=== PATIENT | female | born 1950 | race Caucasian/White ===

== ENCOUNTER 2018-12-27 20:50 | Emergency (ER) | payer OTHER ==
[2018-12-27 22:09] LABS: Absolute Lymphocytes (CBC) 1.1 K/uL (0.7-4.9); Absolute Monocytes 0.7 K/uL (0.1-1.3); Absolute Neutrophil 9.9 K/uL (1.8-8.0); Basophils % 0.5 % (0-1.3); Eosinophils % 1.1 % (0-4.4); Hematocrit 41.8 % (36.0-45.0); Lymphocytes % 9.5 % (15.3-44.8); MPV 7.6 fL (7.6-11.3); Monocytes % 5.6 % (3.3-12.3); RBC Red Blood Cell Count 4.82 M/uL (3.86-4.86)
[2018-12-27 22:09] LABS: Urine Blood 2+ (NEG); Urine Glucose NEGATIVE (NEG); Urine Protein TRACE (NEG); Urine Specific Gravity 1.025 (1.005-1.030)
[2018-12-27 22:18] LABS: Urine Bacteria <20 /HPF (<20); Urine Culture Reflex Order NOT NEEDED; Urine Mucus 2+ /HPF (NONE SEEN); Urine RBC 20-50 /HPF (NONE SEEN)
[2018-12-27 22:27] LABS: Albumin 3.6 g/dL (3.4-5.0); Bilirubin Direct 0.1 mg/dL (0-0.2); Bilirubin Total 0.4 mg/dL (0.2-1.0); Protein, Total 6.9 g/dL (6.4-8.2)
[2018-12-28] MEDS ORDERED: NA CHLORIDE 0.9% 1,000 ML ONE (00:03)
--- NOTE | 2018-12-28 00:07 | ER ---
Nurse's Notes [facility] Name: Jacquie Mota Age: 68 yrs Sex: Female : 1950 Arrival Date: 12/27/2018 Time: 20:56 Bed 5 Private MD: Diagnosis: Calculus of kidney and ureter-left Presentation: 12/27 21:14 Presenting complaint: Patient states: Patient states "I'm feeling a tremendous amount lp1 better now"; States minor pain now to left flank radiating to left groin; Hx of kidney stones. Transition of care: patient was not received from another setting of care. Onset of symptoms was December 27, 2018 at 19:15. Risk Assessment: Do you want to hurt yourself or someone else? Patient reports no desire to harm self or others. Initial Sepsis Screen: Does the patient meet any 2 criteria? No. Patient's initial sepsis screen is negative. Does the patient have a suspected source of infection? No. Patient's initial sepsis screen is negative. Care prior to arrival: None. 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 - Social history:: Smoking status: Patient/guardian denies using tobacco. - Ebola Screening: : No symptoms or risks identified at this time. Screenin:51 Abuse screen: Denies threats or abuse. Denies injuries from another. Nutritional ak1 screening: No deficits noted. Tuberculosis screening: No symptoms or risk factors identified. Fall Risk None identified. Assessment: 21:51 General: Appears in no apparent distress. Behavior is calm, cooperative. Pain: ak1 Complains of pain in suprapubic area and left lower quadrant. Neuro: No deficits noted. Cardiovascular: No deficits noted. Respiratory: No deficits noted. GI: Bowel sounds present X 4 quads. Abd is soft and non tender X 4 quads. Reports lower abdominal pain. : Reports urinary frequency, left lower abd pain with lower back pain X2 weeks. pt stated lower back pain has resolved. EENT: No signs and/or symptoms were reported regarding the EENT system. Derm: No signs and/or symptoms reported regarding the dermatologic system. Musculoskeletal: No signs and/or symptoms reported regarding the musculoskeletal system. 23:05 Reassessment: Patient appears in no apparent distress at this time. No changes from ak1 previously documented assessment. Patient and/or family updated on plan of care and expected duration. Pain level reassessed. Patient is alert, oriented x 3, equal unlabored respirations, skin warm/dry/pink. waiting on CT results. 23:33 Reassessment: pt updated on CT results with ERP going to bedside with all results. ak1 Vital Signs: 21:16 BP 185 / 84; Pulse 71; Resp 18; Temp 98.4; Pulse Ox 98% on R/A; Weight 109.77 kg; lp1 Height 5 ft. 7 in. (170.18 cm); Pain /10; 21:51 BP 162 / 93; Pulse 76; Resp 16; Temp 98.4; Pulse Ox 99% on R/A; ak1 23:56 BP 160 / 74; Pulse 60; Resp 18; Pulse Ox 98% on R/A; ea 21:16 Body Mass Index 37.90 (109.77 kg, 170.18 cm) lp1 ED Course: 20:02 Inserted saline lock: 20 gauge in left antecubital area, using aseptic technique. Blood ea collected. 20:56 Patient arrived in ED. ds1 21:15 Triage completed. lp1 21:15 Arm band placed on left wrist. lp1 21:50 Alina Cruz, RN is Primary Nurse. ak1 21:51 Patient has correct armband on for positive identification. Bed in low position. Call ak1 light in reach. Side rails up X 1. Adult w/ patient. Pulse ox on. NIBP on. 22:07 Anil Yin NP is PHCP. pm1 22:07 Arron Everett MD is Attending Physician. pm1 22:[address] In Process Unspecified. EDMS 12/28 00:31 No provider procedures requiring assistance completed. ak1 00:39 IV discontinued, intact, bleeding controlled, No redness/swelling at site. Pressure ak1 dressing applied. Administered Medications: 12/27 23:54 Drug: NS 0.9% 1000 ml Route: IV; Rate: 1000 ml; Site: left antecubital; ea 12/28 00:39 Follow up: IV Status: Completed infusion; IV Intake: 1000ml ak1 00:11 Drug: Flomax 0.4 mg Route: PO; ea 00:30 Follow up: Response: No adverse reaction ak1 00:30 Drug: traMADol 50 mg Route: PO; ak1 00:30 Follow up: Response: No adverse reaction ak1 Intake: 00:39 IV: 1000ml; Total: 1000ml. ak1 Outcome: 00:06 Discharge ordered by MD. pm1 00:31 Condition: good ak1 00:31 Discharge instructions given to patient, Instructed on discharge instructions, follow up and referral plans. no drinking with medication, no driving heavy equipment, medication usage, Demonstrated understanding of instructions, follow-up care, medications, Prescriptions given X 2. 00:40 Discharged to home ambulatory, with friend. ak1 00:42 Patient left the ED. ea Signatures: Dispatcher [employer] [facility] JudgeIzzy pro 1 Awa Galindo RN RN lp1 Alina Cruz RN RN ak1 Anil Yin, DANY BALL RACKER pm1 Dorothy Garrido RN RN ea
--- NOTE | 2018-12-28 00:08 | EDPHYS ---
Physician Documentation [facility] Name: Jacquie Mota Age: 68 yrs Sex: Female : 1950 Arrival Date: 12/27/2018 Time: 20:56 Bed 5 Private MD: ED Physician Arron Everett HPI: 12/27 22:00 This 68 yrs old Female presents to ER via Ambulatory with complaints of pm1 Possible Kidney Stone. 22:00 The patient complains of pain in the left low back. The pain does not radiate. Onset: pm1 The symptoms/episode began/occurred today. Modifying factors: The symptoms are alleviated by nothing. the symptoms are aggravated by nothing. Associated signs and symptoms: The patient has no apparent associated signs or symptoms, Pertinent negatives: diarrhea, dysuria, fever, urinary frequency, nausea. Severity of pain: in the emergency department the pain has resolved does not want any pain medications since pain resolved. The patient has experienced similar episodes in the past, a few times. The patient has not recently seen a physician. Feels like her prior kidney stones. 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 - Social history:: Smoking status: Patient/guardian denies using tobacco. - Ebola Screening: : No symptoms or risks identified at this time. ROS: 22:00 Constitutional: Negative for fever, chills, and weight loss, Eyes: Negative for injury, pm1 pain, redness, and discharge, ENT: Negative for injury, pain, and discharge, Neck: Negative for injury, pain, and swelling, Cardiovascular: Negative for chest pain, palpitations, and edema, Respiratory: Negative for shortness of breath, cough, wheezing, and pleuritic chest pain, Abdomen/GI: Negative for abdominal pain, nausea, vomiting, diarrhea, and constipation. 22:00 : Negative for injury, bleeding, discharge, and swelling, MS/Extremity: Negative for injury and deformity, Skin: Negative for injury, rash, and discoloration, Neuro: Negative for headache, weakness, numbness, tingling, and seizure. 22:00 Back: Positive for flank pain, on the left. Exam: 22:00 Constitutional: This is a well developed, well nourished patient who is awake, alert, pm1 and in no acute distress. Head/Face: Normocephalic, atraumatic. Eyes: Pupils equal round and reactive to light, extra-ocular motions intact. Lids and lashes normal. Conjunctiva and sclera are non-icteric and not injected. Cornea within normal limits. Periorbital areas with no swelling, redness, or edema. ENT: Nares patent. No nasal discharge, no septal abnormalities noted. Tympanic membranes are normal and external auditory canals are clear. Oropharynx with no redness, swelling, or masses, exudates, or evidence of obstruction, uvula midline. Mucous membranes moist. Neck: Trachea midline, no thyromegaly or masses palpated, and no cervical lymphadenopathy. Supple, full range of motion without nuchal rigidity, or vertebral point tenderness. No Meningismus. Chest/axilla: Normal chest wall appearance and motion. Nontender with no deformity. No lesions are appreciated. Cardiovascular: Regular rate and rhythm with a normal S1 and S2. No gallops, murmurs, or rubs. Normal PMI, no JVD. No pulse deficits. Respiratory: Lungs have equal breath sounds bilaterally, clear to auscultation and percussion. No rales, rhonchi or wheezes noted. No increased work of breathing, no retractions or nasal flaring. Abdomen/GI: Soft, non-tender, with normal bowel sounds. No distension or tympany. No guarding or rebound. No evidence of tenderness throughout. Back: No spinal tenderness. No costovertebral tenderness. Full range of motion. Skin: Warm, dry with normal turgor. Normal color with no rashes, no lesions, and no evidence of cellulitis. MS/ Extremity: Pulses equal, no cyanosis. Neurovascular intact. Full, normal range of motion. 22:00 Neuro: Orientation: is normal, Motor: is normal, moves all fours. Vital Signs: 21:16 BP 185 / 84; Pulse 71; Resp 18; Temp 98.4; Pulse Ox 98% on R/A; Weight 109.77 kg; lp1 Height 5 ft. 7 in. (170.18 cm); Pain /; 21:51 BP 162 / 93; Pulse 76; Resp 16; Temp 98.4; Pulse Ox 99% on R/A; ak1 23:56 BP 160 / 74; Pulse 60; Resp 18; Pulse Ox 98% on R/A; ea 21:16 Body Mass Index 37.90 (109.77 kg, 170.18 cm) lp1 MDM: 22:08 Patient medically screened. pm1 12/28 00:05 Data reviewed: vital signs. Data interpreted: Pulse oximetry: on room air is 98 %. pm1 Interpretation: normal. Counseling: I had a detailed discussion with the patient and/or guardian regarding: the historical points, exam findings, and any diagnostic results supporting the discharge/admit diagnosis, lab results, radiology results, the need for outpatient follow up, for definitive care, a urologist, to return to the emergency department if symptoms worsen or persist or if there are any questions or concerns that arise at home. 12/27 21:48 Order name: Urine Dipstick--Ancillary (enter results); Complete Time: 22:23 ms 12/27 21:51 Order name: Urine Microscopic Only; Complete Time: 22:23 ak1 12/27 21:51 Order name: Urine Culture [facility] 12/27 21:54 Order name: Basic Metabolic Panel; Complete Time: 22:43 ak 12/27 21:54 Order name: CBC with Diff; Complete Time: 22:23 ak 12/27 21:54 Order name: Creatinine for Radiology; Complete Time: 22:43 ak 12/27 21:54 Order name: Hepatic Function; Complete Time: 22:43 ak 12/27 21:54 Order name: Lipase; Complete Time: 22:43 [facility] 12/27 21:54 Order name: IV Saline Lock; Complete Time: 22:12 ak 12/27 21:54 Order name: Labs collected and sent; Complete Time: 22:12 ak 12/27 21:54 Order name: Stone Protocol CT ak1 Administered Medications: 12/27 23:54 Drug: NS 0.9% 1000 ml Route: IV; Rate: 1000 ml; Site: left antecubital; ea 12/28 00:39 Follow up: IV Status: Completed infusion; IV Intake: 1000ml ak1 00:11 Drug: Flomax 0.4 mg Route: PO; ea 00:30 Follow up: Response: No adverse reaction ak1 00:30 Drug: traMADol 50 mg Route: PO; ak1 00:30 Follow up: Response: No adverse reaction ak1 Disposition: 03:07 Co-signature as Attending Physician, Arron Everett MD. pkl Disposition: 12/28/18 00:06 Discharged to Home. Impression: Calculus of kidney and ureter - left. - Condition is Stable. - Discharge Instructions: Kidney Stones. - Prescriptions for Flomax 0.4 mg Oral Capsule, Sust. Release 24 hr - take 1 capsule by ORAL route once daily 1/2 hour following the same meal each day; 30 capsule. Tramadol 50 mg Oral Tablet - take 1 tablet by ORAL route every 8 hours as needed; 20 tablet. - Medication Reconciliation Form, Thank You Letter, Antibiotic Education, Prescription Opioid Use form. - Follow up: Emergency Department; When: As needed; Reason: Worsening of condition. Follow up: Private Physician; When: 2 - 3 days; Reason: Recheck today's complaints, Continuance of care, Re-evaluation by your physician. - Problem is new. - Symptoms have improved. Signatures: Dispatcher [employer] EDMS Arron Everett MD MD pkl Awa Galindo, RN RN lp1 Alina Cruz RN RN ak1 Anil Yin, DANY PROFESSOR [employer] pm1 Dorothy Garrido RN RN ea Corrections: (The following items were deleted from the chart) 00:42 00:06 12/28/2018 00:06 Discharged to Home. Impression: Calculus of kidney and ureter - ea left. Condition is Stable. Forms are Medication Reconciliation Form, Thank You Letter, Antibiotic Education, Prescription Opioid Use. Follow up: Emergency Department; When: As needed; Reason: Worsening of condition. Follow up: Private Physician; When: 2 - 3 days; Reason: Recheck today's complaints, Continuance of care, Re-evaluation by your physician. Problem is new. Symptoms have improved. pm1
[2018-12-28] MEDS ORDERED: TAMSULOSIN 0.4 MG SR CAP ONE (00:22)
[2018-12-28] MEDS ORDERED: TRAMADOL HCL 50 MG TAB ONE (00:35)
[2018-12-28 01:11] VITALS: TEMP 98.4
[2018-12-28 01:14] VITALS: BP 160/74; O2SAT 98
--- NOTE | 2018-12-28 11:27 | RAD REPORT ---
EXAM DESCRIPTION: CT - Stone Protocol - 12/27/2018 11:13 pm CLINICAL HISTORY: 68 years Female, ABD PAIN COMPARISON: None. TECHNIQUE: 3 mm axial images of the abdomen and pelvis were obtained without intravenous contrast. 3 mm coronal and sagittal reformatted images were obtained. This exam was performed according to our departmental dose-optimization program, which includes autom ated exposure control, adjustment of the mA and/or kV according to patient size and/or use of iterati ve reconstruction technique. INTRAVENOUS CONTRAST: None. FINDINGS: Lung bases: There are no active infiltrates. There is a moderate-sized sliding-type hiatal hernia.. Liver: Normal. Spleen: Normal. Pancreas: Normal. Gallbladder: Surgically absent. Right adrenal gland: Normal. Left adrenal gland: Normal. Right kidney: There are 4 small nonobstructing medullary stones in the right kidney. Left kidney: There is mild left hydroureteronephrosis secondary to an obstructing stone at the left U VJ which measures 0.6 x 0.5 cm. There is a complex mass extending laterally in the midpole left kidney which demonstrates mural calci fications. This measures 3.3 x 2.4 x 3.0 cm. There are 3 tiny nonobstructing medullary stones in the lower pole. Retroperitoneal structures: There is severe atherosclerotic disease about the abdominal aorta and alecia ac arteries. Bowel survey: There is a moderate amount residual stool within the ascending and transverse colon. Th e distal ileum is unremarkable. The appendix is unremarkable.. Urinary bladder: Normal. Uterus and adnexa: Normal. Peritoneal cavity: Normal. Mesentery structures: Normal. Abdominal wall: There is a moderate-sized umbilical hernia containing fat.. Bony structures: No suspicious lesions. There is severe degenerative disc disease at L4-L5 and L5-S1. There is severe bilateral facet arthropathy at L3-L4, L4-L5, and L5-S1. IMPRESSION: 1. Mild left hydroureteronephrosis secondary to an obstructing stone at the left UVJ. 2. Complex left renal mass in the midpole left kidney. Further assessment with a nonemergent CT urogr am recommended. 3. Bilateral nephrolithiasis. 4. Atherosclerotic disease. 5. Moderate-sized hiatal hernia. Electronically signed by: Moshe Carreon MD 12/27/2018 11:03 PM CDT Due to temporary technical issues with the PACS/Fluency reporting system, reports are being signed by the in house radiologist as a courtesy to ensure prompt reporting. The interpreting radiologist is f ully responsible for the content of the report.
== END 2018-12-28 00:42 | disposition home or self-care (01) ==
LOC: ER 20:50
DX: N20.2 Calculus of kidney with calculus of ureter (principal); E03.9 Hypothyroidism, unspecified; Z88.2 Allergy status to sulfonamides; Z88.5 Allergy status to narcotic agent
CPT/HCPCS: 36415; 74176; 76377; 80048; 80076; 81003; 81015; 83690; 85025; 87086; 87088; 96360; 99284

== ENCOUNTER 2020-08-22 10:07 | Emergency (ER) | payer OTHER ==
[2020-08-22 12:40] LABS: Absolute Lymphocytes (CBC) 1.7 K/uL (0.7-4.9); Lymphocytes % 16.2 % (15.3-44.8); MPV 8.2 fL (7.6-11.3); RBC Red Blood Cell Count 4.95 M/uL (3.86-4.86)
[2020-08-22 12:47] LABS: Albumin 3.9 g/dL (3.4-5.0); Bilirubin Direct 0.2 mg/dL (0-0.2); Bilirubin Total 0.9 mg/dL (0.2-1.0); Protein, Total 7.4 g/dL (6.4-8.2)
--- NOTE | 2020-08-22 13:06 | RAD REPORT ---
EXAM DESCRIPTION: CTAbdomen Pelvis W Contrast - 08/22/2020 12:40 pm CLINICAL HISTORY: Abdominal pain. ABD PAIN COMPARISON: Abdomen Pelvis W Contrast dated 03/01/2017; Stone Protocol dated 12/27/2018 TECHNIQUE: Biphasic CT imaging of the abdomen and pelvis was performed with 100 ml non-ionic IV cont rast. All CT scans are performed using dose optimization technique as appropriate and may include automated exposure control or mA/KV adjustment according to patient size. FINDINGS: The lung bases are clear.Small hiatal hernia. Mild fatty liver is noted. Cholecystectomy clips are evident. The spleen, pancreas adrenal glands are normal there small calculi are present in the calices of both kidneys. Slightly hyperdense lesion is seen inferolateral cortex left kidney measuring 22 mm containing milk of calcium. Several parapelvic left renal cysts are also present. No bowel obstruction, free air, free fluid or abscess. Moderate stool is present throughout the colon . Scattered diverticulosis is present without diverticulitis. Moderate fat containing umbilical herni a. The appendix is normal. No evidence of significant lymphadenopathy. Moderate lumbar degenerative changes. IMPRESSION: Bilateral nephrolithiasis is present without hydronephrosis. Moderate colonic diverticulosis coli without diverticulitis. Hiatal hernia.
--- NOTE | 2020-08-22 13:12 | EDPHYS ---
Physician Documentation [facility] Name: Jacquie Mota Age: 69 yrs Sex: Female : 1950 Arrival Date: 08/22/2020 Time: 10:09 Bed 19 Private MD: ED Physician Jared Flanagan HPI: 08/22 12:03 This 69 yrs old Female presents to ER via Ambulatory with complaints of kb abdominal pain. 12:04 The patient presents with abdominal pain in the left upper quadrant. Onset: The kb symptoms/episode began/occurred 2 day(s) ago. The symptoms radiate to left back. Associated signs and symptoms: none. The symptoms are described as waxing/waning. Modifying factors: The symptoms are alleviated by nothing, the symptoms are aggravated by nothing. Severity of pain: At its worst the pain was moderate in the emergency department the pain has improved. The patient has not experienced similar symptoms in the past. The patient has not recently seen a physician. Historical: - Allergies: 10:32 Codeine; hb 10:32 Sulfa (Sulfonamide Antibiotics); hb 10:32 Vicodin; hb - Home Meds: 10:32 [place] Thyroid 30 mg Oral tab daily for Hypothyroidism [Active]; hb - PMHx: 10:32 Johnson's Esopagus; hiatal hernia; Hypothyroidism; hb - PSHx: 10:32 Tonsillectomy; Cholecystectomy; hb - Immunization history:: Adult Immunizations up to date. - Social history:: Smoking status: Patient denies any tobacco usage or history of. ROS: 12:02 Constitutional: Negative for fever, chills, and weight loss, Cardiovascular: Negative kb for chest pain, palpitations, and edema, Respiratory: Negative for shortness of breath, cough, wheezing, and pleuritic chest pain, Back: Negative for injury and pain, MS/Extremity: Negative for injury and deformity, Skin: Negative for injury, rash, and discoloration, Neuro: Negative for headache, weakness, numbness, tingling, and seizure. 12:02 Abdomen/GI: Positive for abdominal pain. Exam: 12:02 Constitutional: This is a well developed, well nourished patient who is awake, alert, kb and in no acute distress. Head/Face: Normocephalic, atraumatic. Chest/axilla: Normal chest wall appearance and motion. Nontender with no deformity. No lesions are appreciated. Cardiovascular: Regular rate and rhythm with a normal S1 and S2. No gallops, murmurs, or rubs. Normal PMI, no JVD. No pulse deficits. Respiratory: Lungs have equal breath sounds bilaterally, clear to auscultation and percussion. No rales, rhonchi or wheezes noted. No increased work of breathing, no retractions or nasal flaring. Skin: Warm, dry with normal turgor. Normal color with no rashes, no lesions, and no evidence of cellulitis. MS/ Extremity: Pulses equal, no cyanosis. Neurovascular intact. Full, normal range of motion. Neuro: Awake and alert, GCS 15, oriented to person, place, time, and situation. Cranial nerves II-XII grossly intact. Motor strength 5/5 in all extremities. Sensory grossly intact. Cerebellar exam normal. Normal gait. 12:02 Abdomen/GI: Inspection: abdomen appears normal, Bowel sounds: normal, in all quadrants, Palpation: soft, in all quadrants, nontender, in the right upper quadrant, right lower quadrant and left lower quadrant, mild abdominal tenderness, in the left upper quadrant. Vital Signs: 10:30 BP 182 / 82; Pulse 78; Resp 16; Temp 98.2; Pulse Ox 99% on R/A; Weight 98.43 kg; Height hb 5 ft. 7 in. (170.18 cm); Pain 9/10; 13:30 BP 168 / 76; Pulse 72; Resp 18; Temp 98.0; Pulse Ox 99% on R/A; ph 10:30 Body Mass Index 33.99 (98.43 kg, 170.18 cm) hb MDM: 10:36 Patient medically screened. kb 12:02 Data reviewed: vital signs, nurses notes. Data interpreted: Pulse oximetry: on room air kb is 99 %. Interpretation: normal. 13:10 Counseling: I had a detailed discussion with the patient and/or guardian regarding: the kb historical points, exam findings, and any diagnostic results supporting the discharge/admit diagnosis, lab results, radiology results, the need for outpatient follow up, a family practitioner, to return to the emergency department if symptoms worsen or persist or if there are any questions or concerns that arise at home. 08/22 10:37 Order name: Basic Metabolic Panel; Complete Time: 12:58 kb 08/22 10:37 Order name: CBC with Diff kb 08/22 10:37 Order name: Hepatic Function kb 08/22 10:37 Order name: Lipase kb 08/22 12:47 Order name: Liver (Hepatic) Function; Complete Time: 12:58 EDMS 08/22 12:52 Order name: Lipase; Complete Time: 12:58 EDMS 08/22 10:37 Order name: IV Saline Lock; Complete Time: 12:20 kb 08/22 10:37 Order name: Labs collected and sent; Complete Time: 12:20 kb 08/22 10:37 Order name: CT Abd/Pelvis - IV Contrast Only; Complete Time: 13:10 kb 08/22 12:54 Order name: CBC with Automated Diff; Complete Time: 12:58 EDMS Administered Medications: 13:29 Not Given (Other Intervention Used): NS 0.9% 1000 ml IV at 1000 ml once ph Disposition: 18:02 Co-signature as Attending Physician, Jared Flanagan MD. ma2 Disposition: 08/22/20 13:11 Discharged to Home. Impression: Upper abdominal pain, unspecified. - Condition is Stable. - Discharge Instructions: Abdominal Pain, Adult, [id number]. - Prescriptions for Bentyl 20 mg Oral Tablet - take 1 tablet by ORAL route every 6 hours As needed; 20 tablet. Zofran 4 mg Oral Tablet - take 1 tablet by ORAL route every 6 hours As needed; 20 tablet. Tramadol 50 mg Oral Tablet - take 1 tablet by ORAL route every 8 hours as needed; 12 tablet. - Medication Reconciliation Form, Thank You Letter, Antibiotic Education, Prescription Opioid Use form. - Follow up: Emergency Department; When: As needed; Reason: Worsening of condition. Follow up: Private Physician; When: 2 - 3 days; Reason: Recheck today's complaints, Continuance of care, Re-evaluation by your physician. Signatures: Dispatcher [employer] EDMS Christina Engle FNP-C FNP-Ckb Hall, Patricia, RN RN Samanta Zamudio RN RN hb Alzahri, Mohammad, MD MD ma2 Corrections: (The following items were deleted from the chart) 13:32 13:11 08/22/2020 13:11 Discharged to Home. Impression: Upper abdominal pain, ph unspecified. Condition is Stable. Forms are Medication Reconciliation Form, Thank You Letter, Antibiotic Education, Prescription Opioid Use. Follow up: Emergency Department; When: As needed; Reason: Worsening of condition. Follow up: Private Physician; When: 2 - 3 days; Reason: Recheck today's complaints, Continuance of care, Re-evaluation by your physician. kb
--- NOTE | 2020-08-22 13:12 | ER ---
Nurse's Notes [facility] Name: Jacquie Mota Age: 69 yrs Sex: Female : 1950 Arrival Date: 08/22/2020 Time: 10:09 Bed 19 Private MD: Diagnosis: Upper abdominal pain, unspecified Presentation: 08/22 10:30 Chief complaint: Patient states: left upper abd pain that radiates to the back since hb yesterday, getting progressively worse. Coronavirus screen: Client denies travel out of the [place] in the last 14 days. At this time, the client does not indicate any symptoms associated with coronavirus-19. Ebola Screen: Patient negative for fever greater than or equal to 101.5 degrees Fahrenheit, and additional compatible Ebola Virus Disease symptoms Patient denies exposure to infectious person. Patient denies travel to an Ebola-affected area in the 21 days before illness onset. No symptoms or risks identified at this time. Initial Sepsis Screen: Does the patient meet any 2 criteria? No. Patient's initial sepsis screen is negative. Does the patient have a suspected source of infection? No. Patient's initial sepsis screen is negative. Risk Assessment: Do you want to hurt yourself or someone else? Patient reports no desire to harm self or others. Onset of symptoms was August 21, 2020. 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 - Social history:: Smoking status: Patient denies any tobacco usage or history of. Screenin:31 Abuse screen: Denies threats or abuse. Denies injuries from another. Nutritional ph screening: No deficits noted. Tuberculosis screening: No symptoms or risk factors identified. Fall Risk None identified. Assessment: 12:30 General: Appears in no apparent distress. uncomfortable, obese, well groomed, Behavior ph is calm, cooperative, appropriate for age, Denies fever, feeling ill. Pain: Complains of pain in left upper quadrant. Neuro: Level of Consciousness is awake, alert, obeys commands, Oriented to person, place, time, situation. Cardiovascular: Capillary refill < 3 seconds in bilateral fingers Patient's skin is warm and dry. Respiratory: Airway is patent Respiratory effort is even, unlabored, Respiratory pattern is regular, symmetrical. GI: Abdomen is non-distended, obese, Reports upper abdominal pain, Patient currently denies constipation, diarrhea, nausea, vomiting. Derm: Skin is intact, is healthy with good turgor, Skin is pink, warm \T\ dry. Musculoskeletal: Circulation, motion, and sensation intact. Range of motion: intact in all extremities. Vital Signs: 10:30 BP 182 / 82; Pulse 78; Resp 16; Temp 98.2; Pulse Ox 99% on R/A; Weight 98.43 kg; Height hb 5 ft. 7 in. (170.18 cm); Pain 9/10; 13:30 BP 168 / 76; Pulse 72; Resp 18; Temp 98.0; Pulse Ox 99% on R/A; ph 10:30 Body Mass Index 33.99 (98.43 kg, 170.18 cm) hb ED Course: 10:09 Patient arrived in ED. rg4 10:31 Triage completed. hb 10:32 Arm band placed on. hb 10:36 [facility] Eng[facility]C [facility] kb 10:36 Jared Flanagan MD is Attending Physician. kb 12:04 Mary Canas, RN is Primary Nurse. ph 12:15 Initial lab(s) drawn, by me, sent to lab. Inserted saline lock: 20 gauge in left dh3 antecubital area, using aseptic technique. Blood collected. 12:40 CT Abd/Pelvis - IV Contrast Only In Process Unspecified. EDMS 13:31 Patient has correct armband on for positive identification. Placed in gown. Bed in low ph position. Call light in reach. Side rails up X 1. Pulse ox on. NIBP on. Door closed. Noise minimized. Warm blanket given. 13:31 No provider procedures requiring assistance completed. IV discontinued, intact, ph bleeding controlled, No redness/swelling at site. Pressure dressing applied. Administered Medications: 13:29 Not Given (Other Intervention Used): NS 0.9% 1000 ml IV at 1000 ml once ph Outcome: 13:11 Discharge ordered by MD. benson 13:31 Discharged to home ambulatory. ph 13:31 Condition: good 13:31 Discharge instructions given to patient, Instructed on discharge instructions, follow up and referral plans. medication usage, Demonstrated understanding of instructions, follow-up care, medications, Prescriptions given X 3. 13:32 Patient left the ED. ph Signatures: Dispatcher [employer] EDMS Christina Engle, Mary Hernandez, RN RN Samanta Zamudio RN RN Chayo Gerard 4 Merry Chappell 3 Corrections: (The following items were deleted from the chart) 10:33 10:30 BP 182 / 82; Pulse 78bpm; Resp 16bpm; Pulse Ox 99% RA; Temp 98.2F; hb hb
[2020-08-22] MEDS ORDERED: NA CHLORIDE 0.9% 0 ML ONE (13:22)
== END 2020-08-22 13:32 | disposition home or self-care (01) ==
LOC: ER 10:07
DX: R10.12 Left upper quadrant pain (principal); E03.9 Hypothyroidism, unspecified; Z88.2 Allergy status to sulfonamides; Z88.5 Allergy status to narcotic agent
CPT/HCPCS: 85025; 80048; 36415; 82565; 80076; 83690; 74177; Q9967; 99284; J7030

== ENCOUNTER 2020-09-04 | Emergency (ER) | payer OTHER ==
--- NOTE | 2020-09-04 15:18 | ER ---
Nurse's Notes [facility] Name: Jacquie Mota Age: 69 yrs Sex: Female : 1950 Arrival Date: 09/04/2020 Time: 15:05 Bed Waiting Private MD: Diagnosis: Zoster [herpes zoster];Local infection of the skin and subcutaneous tissue, unspecified Presentation: 09/04 15:13 Chief complaint: Patient states: broke out in a shingles rash, has been on antivirals , iw pain started on 08-22, across abdomen on left side. Coronavirus screen: At this time, the client does not indicate any symptoms associated with coronavirus-19. Ebola Screen: Patient negative for fever greater than or equal to 101.5 degrees Fahrenheit, and additional compatible Ebola Virus Disease symptoms Patient denies exposure to infectious person. Patient denies travel to an Ebola-affected area in the 21 days before illness onset. No symptoms or risks identified at this time. Initial Sepsis Screen: Does the patient meet any 2 criteria? No. Patient's initial sepsis screen is negative. Does the patient have a suspected source of infection? No. Patient's initial sepsis screen is negative. Risk Assessment: Do you want to hurt yourself or someone else? Patient reports no desire to harm self or others. Onset of symptoms was August 22, 2020. 15:13 Method Of Arrival: Ambulatory iw 15:13 Acuity: MARIVEL 4 iw Historical: - Allergies: 15:14 Codeine; iw 15:14 Sulfa (Sulfonamide Antibiotics); iw 15:14 Vicodin; iw - Home Meds: 15:14 [place] Thyroid 30 mg Oral tab daily for Hypothyroidism [Active]; iw - PMHx: 15:14 Johnson's Esopagus; hiatal hernia; Hypothyroidism; iw - PSHx: 15:14 Tonsillectomy; Cholecystectomy; iw - Immunization history:: Adult Immunizations. - Social history:: Smoking status: Patient denies any tobacco usage or history of. Screenin:17 Abuse screen: Denies threats or abuse. Denies injuries from another. Nutritional iw screening: No deficits noted. Tuberculosis screening: No symptoms or risk factors identified. Fall Risk None identified. Assessment: 15:16 General: Appears in no apparent distress. Behavior is calm, cooperative. Pain: iw Complains of pain in abdomen. Neuro: Level of Consciousness is awake, alert, obeys commands, Oriented to person, place, time, situation, Moves all extremities. Full function. Cardiovascular: Patient's skin is warm and dry. Respiratory: Respiratory effort is even, unlabored, Respiratory pattern is regular, symmetrical. Derm: Rash noted that is red, on posterior aspect of left lateral abdomen, anterior aspect of left lateral abdomen and left upper quadrant. Musculoskeletal: Range of motion: intact in all extremities. Vital Signs: 15:14 BP 190 / 91; Pulse 76; Resp 16; Temp 98.5; Pulse Ox 99% on R/A; Weight 98.43 kg; Height iw 5 ft. 7 in. (170.18 cm); 15:14 Body Mass Index 33.99 (98.43 kg, 170.18 cm) iw ED Course: 15:05 Patient arrived in ED. rg4 15:14 Triage completed. iw 15:15 Arm band placed on. iw 15:16 Antonella Loyd, RN is Primary Nurse. iw 15:16 Patient has correct armband on for positive identification. iw 15:17 No provider procedures requiring assistance completed. Patient did not have IV access iw during this emergency room visit. 15:18 [facility] kb 15:18 Elijah Garcia MD is Attending Physician. kb Administered Medications: No medications were administered Outcome: 15:18 Discharge ordered by . kb 15:21 Discharged to home ambulatory. iw 15:21 Condition: good 15:21 Discharge instructions given to patient, Instructed on discharge instructions, follow up and referral plans. medication usage, Demonstrated understanding of instructions, follow-up care, medications, Prescriptions given X 2. 15:22 Patient left the ED. iw Signatures: Christina Engle FNP-C FNP-Antonella Quiñones RN RN iw Chayo Gerard rg4 Corrections: (The following items were deleted from the chart) 15:16 15:13 Chief complaint: Patient states: broke out in a shingles rash, has been on iw antivirals , pain started on 12-9, across abdomen on left side iw 15:16 15:14 Pulse 76bpm; Resp 16bpm; Pulse Ox 99% RA; Temp 98.5F; 98.43 kg; Height 5 ft. 7 iw in.; BMI: 33.9; iw
--- NOTE | 2020-09-04 15:18 | EDPHYS ---
Physician Documentation [facility] Name: Jacquie Mota Age: 69 yrs Sex: Female : 1950 Arrival Date: 09/04/2020 Time: 15:05 Bed Waiting Private MD: ED Physician Elijah Garcia HPI: 09/04 15:49 This 69 yrs old Female presents to ER via Ambulatory with complaints of kb Shingles. 15:49 The patient's rash thought to be caused by zoster. The rash is located on the posterior kb aspect of left lateral abdomen, anterior aspect of left lateral abdomen and left upper quadrant. The rash can be described as vesicular. Onset: The symptoms/episode began/occurred last week. Associated signs and symptoms: Pertinent positives: burning sensation, Pain Pertinent negatives: fever. Severity of symptoms: At their worst the symptoms were moderate in the emergency department the symptoms are unchanged. The patient has not experienced similar symptoms in the past. The patient has not recently seen a physician. Pt states she was diagnosed with shingles and put on antivirals, muscle relaxers and steroids. States she came in today because she wanted it looked at to make sure she wasn't getting a secondary skin infection.. Historical: - Allergies: 15:14 Codeine; iw 15:14 Sulfa (Sulfonamide Antibiotics); iw 15:14 Vicodin; iw - Home Meds: 15:14 [place] Thyroid 30 mg Oral tab daily for Hypothyroidism [Active]; iw - PMHx: 15:14 Johnson's Esopagus; hiatal hernia; Hypothyroidism; iw - PSHx: 15:14 Tonsillectomy; Cholecystectomy; iw - Immunization history:: Adult Immunizations. - Social history:: Smoking status: Patient denies any tobacco usage or history of. ROS: 15:49 Constitutional: Negative for fever, chills, and weight loss, Cardiovascular: Negative kb for chest pain, palpitations, and edema, Respiratory: Negative for shortness of breath, cough, wheezing, and pleuritic chest pain, Abdomen/GI: Negative for abdominal pain, nausea, vomiting, diarrhea, and constipation, MS/Extremity: Negative for injury and deformity, Neuro: Negative for headache, weakness, numbness, tingling, and seizure. 15:49 Skin: Positive for rash, of the anterior aspect of left lateral abdomen and posterior aspect of left lateral abdomen and left upper quadrant. Exam: 15:49 Constitutional: This is a well developed, well nourished patient who is awake, alert, kb and in no acute distress. Head/Face: Normocephalic, atraumatic. Chest/axilla: Normal chest wall appearance and motion. Nontender with no deformity. No lesions are appreciated. Cardiovascular: Regular rate and rhythm with a normal S1 and S2. No gallops, murmurs, or rubs. Normal PMI, no JVD. No pulse deficits. Respiratory: Lungs have equal breath sounds bilaterally, clear to auscultation and percussion. No rales, rhonchi or wheezes noted. No increased work of breathing, no retractions or nasal flaring. Abdomen/GI: Soft, non-tender, with normal bowel sounds. No distension or tympany. No guarding or rebound. No evidence of tenderness throughout. MS/ Extremity: Pulses equal, no cyanosis. Neurovascular intact. Full, normal range of motion. Neuro: Awake and alert, GCS 15, oriented to person, place, time, and situation. Cranial nerves II-XII grossly intact. Motor strength 5/5 in all extremities. Sensory grossly intact. Cerebellar exam normal. Normal gait. 15:49 Skin: consistent with zoster, some lesions are open with redness surrounding them . Vital Signs: 15:14 BP 190 / 91; Pulse 76; Resp 16; Temp 98.5; Pulse Ox 99% on R/A; Weight 98.43 kg; Height iw 5 ft. 7 in. (170.18 cm); 15:14 Body Mass Index 33.99 (98.43 kg, 170.18 cm) iw MDM: 15:18 Patient medically screened. kb 15:53 Data reviewed: vital signs, nurses notes. Data interpreted: Pulse oximetry: on room air kb is 99 %. Interpretation: normal. Counseling: I had a detailed discussion with the patient and/or guardian regarding: the historical points, exam findings, and any diagnostic results supporting the discharge/admit diagnosis, the need for outpatient follow up, a family practitioner, to return to the emergency department if symptoms worsen or persist or if there are any questions or concerns that arise at home. Administered Medications: No medications were administered Disposition: 09/05 06:29 Co-signature as Attending Physician, Elijah Garcia MD I agree with the assessment and kdr plan of care. Disposition: 09/04/20 15:18 Discharged to Home. Impression: Zoster [herpes zoster], Local infection of the skin and subcutaneous tissue, unspecified. - Condition is Stable. - Discharge Instructions: Shingles, Wound Infection, [id number]. - Prescriptions for Keflex 500 mg Oral Capsule - take 1 capsule by ORAL route every 8 hours for 10 days; 30 capsule. Tramadol 50 mg Oral Tablet - take 1 tablet by ORAL route every 8 hours as needed; 12 tablet. - Medication Reconciliation Form, Thank You Letter, Antibiotic Education, Prescription Opioid Use form. - Follow up: Emergency Department; When: As needed; Reason: Worsening of condition. Follow up: Private Physician; When: 2 - 3 days; Reason: Recheck today's complaints, Continuance of care, Re-evaluation by your physician. Signatures: Christina Engle, RN GERIATRIC-C RN GERIATRIC-Elijah Suazo MD MD kdr Antonella Loyd RN RN iw Corrections: (The following items were deleted from the chart) 09/04 15:19 15:18 09/04/2020 15:18 Discharged to Home. Impression: Zoster [herpes zoster]. kb Condition is Stable. Forms are Medication Reconciliation Form, Thank You Letter, Antibiotic Education, Prescription Opioid Use. Follow up: Emergency Department; When: As needed; Reason: Worsening of condition. Follow up: Private Physician; When: 2 - 3 days; Reason: Recheck today's complaints, Continuance of care, Re-evaluation by your physician. kb 15:22 15:19 09/04/2020 15:18 Discharged to Home. Impression: Zoster [herpes zoster]; Local iw infection of the skin and subcutaneous tissue, unspecified. Condition is Stable. Discharge Instructions: Shingles, Wound Infection, [id number]. Prescriptions for Keflex 500 mg Oral Capsule - take 1 capsule by ORAL route every 8 hours for 10 days; 30 capsule, Tramadol 50 mg Oral Tablet - take 1 tablet by ORAL route every 8 hours as needed; 12 tablet. and Forms are Medication Reconciliation Form, Thank You Letter, Antibiotic Education, Prescription Opioid Use. Follow up: Emergency Department; When: As needed; Reason: Worsening of condition. Follow up: Private Physician; When: 2 - 3 days; Reason: Recheck today's complaints, Continuance of care, Re-evaluation by your physician. kb
== END 2020-09-04 15:22 | disposition home or self-care (01) ==
CPT/HCPCS: 99282

== ENCOUNTER 2020-09-06 10:43 | Emergency (ER) | payer OTHER ==
[2020-09-06] MEDS ORDERED: GABAPENTIN 300 MG CAP ONE (11:52)
--- NOTE | 2020-09-06 12:12 | ER ---
Nurse's Notes [facility] Name: Jacquie Mota Age: 69 yrs Sex: Female : 1950 Arrival Date: 09/06/2020 Time: 10:46 Bed 4 Private MD: Diagnosis: Zoster [herpes zoster];Essential (primary) hypertension Presentation: 09/06 11:09 Chief complaint: Patient states: Shingles pain to L flank. Ran out of tramadol, needs ll1 refill. See's Dr. Dill Thursday. Coronavirus screen: Client denies travel out of the [place] in the last 14 days. At this time, the client does not indicate any symptoms associated with coronavirus-19. Ebola Screen: Patient denies travel to an Ebola-affected area in the 21 days before illness onset. Initial Sepsis Screen: Does the patient meet any 2 criteria? No. Patient's initial sepsis screen is negative. Does the patient have a suspected source of infection? Yes: Skin breakdown/wound. Risk Assessment: Do you want to hurt yourself or someone else? Patient reports no desire to harm self or others. Onset of symptoms was September 03, 2020. 11:09 Method Of Arrival: Ambulatory ll1 11:09 Acuity: MARIVEL 3 ll1 Historical: - Allergies: 11:09 Codeine; ll1 11:09 Sulfa (Sulfonamide Antibiotics); ll1 11:09 Vicodin; ll1 - PMHx: 11:09 Johnson's Esopagus; hiatal hernia; Hypothyroidism; ll1 - PSHx: 11:09 Tonsillectomy; Cholecystectomy; ll1 - Immunization history:: Flu vaccine is not up to date. - Social history:: Smoking status: Patient denies any tobacco usage or history of. Screenin:30 Abuse screen: Denies threats or abuse. Nutritional screening: No deficits noted. aa5 Tuberculosis screening: No symptoms or risk factors identified. Fall Risk None identified. Assessment: 11:20 General: Appears uncomfortable, Behavior is calm, cooperative. Pain: Complains of pain aa5 in left breast and left lateral anterior chest and left lateral posterior chest Pain currently is 6 out of 10 on a pain scale. Quality of pain is described as burning, stinging, Is continuous. Neuro: Level of Consciousness is awake, alert, obeys commands, Oriented to person, place, time, situation. Cardiovascular: Patient's skin is warm and dry. Respiratory: Airway is patent Respiratory effort is even, unlabored, Respiratory pattern is regular, symmetrical. GI: Abdomen is round. : No signs and/or symptoms were reported regarding the genitourinary system. EENT: No signs and/or symptoms were reported regarding the EENT system. Derm: Skin is pink, warm \T\ dry. Rash noted that is on left lateral anterior chest and left lateral posterior chest. Musculoskeletal: Range of motion: intact in all extremities. 12:11 Reassessment: Patient is alert, oriented x 3, equal unlabored respirations, skin aa5 warm/dry/pink. 12:31 Reassessment: Patient is alert, oriented x 3, equal unlabored respirations, skin aa5 warm/dry/pink. General: Appears comfortable. Vital Signs: 11:09 BP 172 / 122; Pulse 82; Resp 18; Temp 97.8; Pulse Ox 98% on R/A; Weight 98.43 kg; ll1 Height 5 ft. 7 in. (170.18 cm); Pain 6/10; 11:40 BP 184 / 89; Pulse 78; Resp 16 S; Pulse Ox 100% on R/A; aa5 12:11 BP 171 / 90; Pulse 62; Resp 16 S; Pulse Ox 98% on R/A; aa5 11:09 Body Mass Index 33.99 (98.43 kg, 170.18 cm) ll1 ED Course: 10:46 Patient arrived in ED. as 10:52 Paulo Arechiga MD is Attending Physician. jerome 11:04 Kylee Ospina, ILANA is Primary Nurse. aa5 11:09 Arm band placed on Patient placed in an exam room, on a stretcher. ll1 11:11 Triage completed. ll1 11:20 Patient has correct armband on for positive identification. Bed in low position. Call aa5 light in reach. Side rails up X 1. 12:11 Scooby Dill MD is Referral Physician. jerome 12:30 No provider procedures requiring assistance completed. Patient did not have IV access aa5 during this emergency room visit. Administered Medications: 11:40 Drug: Gabapentin 300 mg Route: PO; aa5 12:30 Follow up: Response: No adverse reaction; Pain is decreased aa5 12:31 Drug: Norvasc 10 mg Route: PO; aa5 12:31 Follow up: Response: Medication administered at discharge. aa5 12:31 Follow up: Response: No adverse reaction aa5 Outcome: 12:11 Discharge ordered by . jerome 12:30 Discharged to home ambulatory. aa5 12:30 Condition: improved 12:30 Discharge instructions given to patient, Instructed on discharge instructions, follow up and referral plans. medication usage, Demonstrated understanding of instructions, follow-up care, medications, Prescriptions given X 3. 12:31 Patient left the ED. aa5 Signatures: Paulo Arechiga MD MD cha Martinez, Amelia as Calderon, Audri, RN RN aa5 Afshin Fernandez RN RN ll1
--- NOTE | 2020-09-06 12:13 | EDPHYS ---
Physician Documentation [facility] Name: Jacquie Mota Age: 69 yrs Sex: Female : 1950 Arrival Date: 09/06/2020 Time: 10:46 Bed 4 Private MD: Paulo Miguel HPI: 09/06 11:22 This 69 yrs old Female presents to ER via Ambulatory with complaints of jerome Shingles, Pain All Over. 11:22 The patient's rash thought to be caused by an unknown cause. The rash is located on the jerome left lateral posterior chest, left lateral anterior chest and left breast. The rash can be described as patchy, vesicular. Onset: The symptoms/episode began/occurred 2 week(s) ago. Associated signs and symptoms: Pertinent positives: burning sensation. Severity of symptoms: At their worst the symptoms were mild moderate in the emergency department the symptoms are unchanged. Treatment given at home: none. The patient has experienced similar episodes in the past, a few times. 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 - Social history:: Smoking status: Patient denies any tobacco usage or history of. ROS: 11:24 Constitutional: Negative for fever, chills, and weight loss, Eyes: Negative for injury, jerome pain, redness, and discharge, ENT: Negative for injury, pain, and discharge, Neck: Negative for injury, pain, and swelling, Cardiovascular: Negative for chest pain, palpitations, and edema, Respiratory: Negative for shortness of breath, cough, wheezing, and pleuritic chest pain, Abdomen/GI: Negative for abdominal pain, nausea, vomiting, diarrhea, and constipation, : Negative for injury, bleeding, discharge, and swelling, MS/Extremity: Negative for injury and deformity, Neuro: Negative for headache, weakness, numbness, tingling, and seizure, Psych: Negative for depression, anxiety, suicide ideation, homicidal ideation, and hallucinations, Allergy/Immunology: Negative for hives, rash, and allergies, Endocrine: Negative for neck swelling, polydipsia, polyuria, polyphagia, and marked weight changes, Hematologic/Lymphatic: Negative for swollen nodes, abnormal bleeding, and unusual bruising. 11:24 Back: Positive for of the right mid back. Exam: 11:24 Constitutional: This is a well developed, well nourished patient who is awake, alert, jerome and in no acute distress. Head/Face: Normocephalic, atraumatic. Eyes: Pupils equal round and reactive to light, extra-ocular motions intact. Lids and lashes normal. Conjunctiva and sclera are non-icteric and not injected. Cornea within normal limits. Periorbital areas with no swelling, redness, or edema. ENT: Nares patent. No nasal discharge, no septal abnormalities noted. Tympanic membranes are normal and external auditory canals are clear. Oropharynx with no redness, swelling, or masses, exudates, or evidence of obstruction, uvula midline. Mucous membranes moist. Neck: Trachea midline, no thyromegaly or masses palpated, and no cervical lymphadenopathy. Supple, full range of motion without nuchal rigidity, or vertebral point tenderness. No Meningismus. Cardiovascular: Regular rate and rhythm with a normal S1 and S2. No gallops, murmurs, or rubs. Normal PMI, no JVD. No pulse deficits. Respiratory: Lungs have equal breath sounds bilaterally, clear to auscultation and percussion. No rales, rhonchi or wheezes noted. No increased work of breathing, no retractions or nasal flaring. Abdomen/GI: Soft, non-tender, with normal bowel sounds. No distension or tympany. No guarding or rebound. No evidence of tenderness throughout. Back: No spinal tenderness. No costovertebral tenderness. Full range of motion. Female : Normal external genitalia. MS/ Extremity: Pulses equal, no cyanosis. Neurovascular intact. Full, normal range of motion. Neuro: Awake and alert, GCS 15, oriented to person, place, time, and situation. Cranial nerves II-XII grossly intact. Motor strength 5/5 in all extremities. Sensory grossly intact. Cerebellar exam normal. Normal gait. Psych: Awake, alert, with orientation to person, place and time. Behavior, mood, and affect are within normal limits. 11:24 Chest/axilla: Inspection: normal, no acute changes, Palpation: is normal, no acute changes, Axilla: are normal, no acute changes. Vital Signs: 11:09 BP 172 / 122; Pulse 82; Resp 18; Temp 97.8; Pulse Ox 98% on R/A; Weight 98.43 kg; ll1 Height 5 ft. 7 in. (170.18 cm); Pain 6/10; 11:40 BP 184 / 89; Pulse 78; Resp 16 S; Pulse Ox 100% on R/A; aa5 12:11 BP 171 / 90; Pulse 62; Resp 16 S; Pulse Ox 98% on R/A; aa5 11:09 Body Mass Index 33.99 (98.43 kg, 170.18 cm) ll1 MDM: 11:07 Patient medically screened. [facility] 11:24 Data reviewed: vital signs, nurses notes. Data interpreted: monitor and storage bin tender: rate is 82 jerome beats/min, rhythm is regular. Test interpretation: by ED physician or midlevel provider:. Counseling: I had a detailed discussion with the patient and/or guardian regarding: the historical points, exam findings, and any diagnostic results supporting the discharge/admit diagnosis. 09/06 11:21 Order name: Blood Pressure Recheck; Complete Time: 11:40 [facility] Administered Medications: 11:40 Drug: Gabapentin 300 mg Route: PO; aa5 12:30 Follow up: Response: No adverse reaction; Pain is decreased [facility] 12:31 Drug: Norvasc 10 mg Route: PO; aa5 12:31 Follow up: Response: Medication administered at discharge. aa5 12:31 Follow up: Response: No adverse reaction aa5 Disposition: 09/06/20 12:11 Discharged to Home. Impression: Zoster [herpes zoster], Essential (primary) hypertension. - Condition is Stable. - Discharge Instructions: Hypertension, Shingles, Shingles, [id number], Hypertension, [id number], Aspirin and Your Heart. - Prescriptions for gabapentin 100 mg Oral capsule - take 1 capsule by ORAL route 3 times per day may double in one week if pain persist or worsens, 2 tabs three times a day; 60 capsule. Tramadol 50 mg Oral Tablet - take 1 tablet by ORAL route every 8 hours as needed; 24 tablet. Norvasc 5 mg Oral Tablet - take 1 tablet by ORAL route once daily; 20 tablet. - Medication Reconciliation Form, Thank You Letter, Antibiotic Education, Prescription Opioid Use form. - Follow up: Private Physician; When: 2 - 3 days; Reason: Recheck today's complaints, Continuance of care, Re-evaluation by your physician. Follow up: Scooby Dill; When: 2 - 3 days; Reason: Recheck today's complaints, Re-evaluation by your physician. - Problem is new. - Symptoms have improved. Signatures: Paulo Arechiga MD MD cha Calderon, Audri RN RN aa5 Afshin Fernandez RN RN ll1 Corrections: (The following items were deleted from the chart) 12:31 12:12 09/06/2020 12:11 Discharged to Home. Impression: Zoster [herpes zoster]; aa5 Essential (primary) hypertension. Condition is Stable. Discharge Instructions: Hypertension, Hypertension, [id number], Shingles, Shingles, [id number]. Prescriptions for gabapentin 100 mg Oral capsule - take 1 capsule by ORAL route 3 times per day may double in one week if pain persist or worsens, 2 tabs three times a day; 60 capsule, Tramadol 50 mg Oral Tablet - take 1 tablet by ORAL route every 8 hours as needed; 24 tablet. and Forms are Medication Reconciliation Form, Thank You Letter, Antibiotic Education, Prescription Opioid Use. Follow up: Private Physician; When: 2 - 3 days; Reason: Recheck today's complaints, Continuance of care, Re-evaluation by your physician. Follow up: Scooby Dill; When: 2 - 3 days; Reason: Recheck today's complaints, Re-evaluation by your physician. Problem is new. Symptoms have improved. jerome
[2020-09-06 12:35] VITALS: TEMP 97.8
[2020-09-06 12:38] VITALS: BP 171/90; O2SAT 98
[2020-09-06] MEDS ORDERED: AMLODIPINE 5 MG TAB ONE (12:39)
== END 2020-09-06 12:31 | disposition home or self-care (01) ==
LOC: ER 10:43
DX: B02.9 Zoster without complications (principal); I10 Essential (primary) hypertension; Z88.2 Allergy status to sulfonamides; Z88.5 Allergy status to narcotic agent
CPT/HCPCS: 99283

== ENCOUNTER 2020-09-12 | Emergency (ER) | payer SELFPAY ==
--- NOTE | 2020-09-12 19:13 | ER ---
Nurse's Notes [facility] Name: Jacquie Mota Age: 69 yrs Sex: Female : 1950 Arrival Date: 09/12/2020 Time: 14:51 Bed Waiting Private MD: Diagnosis: Presentation: 09/12 15:04 Coronavirus screen: Client denies travel out of the [place] in the last 14 days. At this aa5 time, the client does not indicate any symptoms associated with coronavirus-19. Ebola Screen: Patient negative for fever greater than or equal to 101.5 degrees Fahrenheit, and additional compatible Ebola Virus Disease symptoms. Initial Sepsis Screen: Does the patient meet any 2 criteria? No. Patient's initial sepsis screen is negative. Does the patient have a suspected source of infection? No. Patient's initial sepsis screen is negative. Risk Assessment: Do you want to hurt yourself or someone else? Patient reports no desire to harm self or others. Onset of symptoms was August 2020. 15:04 Method Of Arrival: Ambulatory aa5 15:04 Acuity: MARIVEL 4 aa5 15:04 Chief complaint: Chief complaint: Patient states: "I was here with shingles and they aa5 gave me cephalexin on the for an infected spot but I think it's still infected and I did miss some doses of Cephalexin because I forgot or I was asleep", pt states "I am also almost out of tramadol for the pain". Historical: - Allergies: 15:06 Codeine; aa5 15:06 Sulfa (Sulfonamide Antibiotics); aa5 15:06 Vicodin; aa5 - Home Meds: 15:06 [place] Thyroid 30 mg Oral tab daily for Hypothyroidism [Active]; aa5 15:07 Norvasc Oral [Active]; aa5 - PMHx: 15:06 Johnson's Esopagus; hiatal hernia; Hypothyroidism; aa5 - PSHx: 15:06 Tonsillectomy; Cholecystectomy; aa5 Assessment: 19:10 Reassessment: Pt reports that she is just going to go home and taker her medication and ss return in the morning. Vital Signs: 15:04 BP 201 / 95; Pulse 85; Resp 16 S; Temp 98.6(O); Pulse Ox 95% on R/A; Pain 3/10; aa5 15:04 Weight 96.62 kg (R); Height 5 ft. 7 in. (170.18 cm) (R); aa5 15:04 Body Mass Index 33.36 (96.62 kg, 170.18 cm) aa5 15:04 Pt reports she has not taken her medications for hypertension today. Pt states "I was aa just busy and forgot" ED Course: 14:51 Patient arrived in ED. ag5 15:00 Arm band placed on. aa5 15:06 Triage completed. aa5 19:10 No provider procedures requiring assistance completed. Patient did not have IV access ss during this emergency room visit. Administered Medications: No medications were administered Outcome: 19:10 Eloped from waiting room. ss 19:12 Patient left the ED. ss Signatures: Kylee Ospina RN RN [facility] Vanessa Metz RN RN ss Lisa Chung 5 Corrections: (The following items were deleted from the chart) 15:06 15:04 Acuity: MARIVEL 5 aa5 aa5 15:09 15:06 Chief complaint: aa aa
== END 2020-09-12 19:12 | disposition left against medical advice (07) ==
DX: Z53.21 Procedure and treatment not carried out due to patient leaving prior to being seen by health care provider (principal)
CPT/HCPCS: 99281

== ENCOUNTER 2020-09-13 10:44 | Emergency (ER) | payer OTHER ==
--- NOTE | 2020-09-13 12:26 | EDPHYS ---
Physician Documentation [facility] Name: Jacquie Mota Age: 69 yrs Sex: Female : 1950 Arrival Date: 09/13/2020 Time: 10:46 Bed 26 Private MD: BERYL Physician Paulo Arechiga HPI: 09/13 12:19 This 69 yrs old Female presents to ER via Ambulatory with complaints of Wound jerome Check. 12:19 Patient presents to ED for recheck of: healing, one spot red. The affected area is on jerome the abdomen. Previous treatment: valtrex, local wound care. Progress: The patient reports excellent improvement in the affected area. There has been resolution, improvement, or non-development of any drainage, fever, pain, redness or swelling. The patient has not experienced similar symptoms in the past. Historical: - Allergies: 11:00 Codeine; ca1 11:00 Sulfa (Sulfonamide Antibiotics); ca1 11:00 Vicodin; ca1 - Home Meds: 11:00 [place] Thyroid 30 mg Oral tab daily for Hypothyroidism [Active]; Norvasc Oral [Active]; ca1 - PMHx: 11:00 Johnson's Esopagus; hiatal hernia; Hypothyroidism; Hypertension; ca1 - PSHx: 11:00 Tonsillectomy; Cholecystectomy; ca1 - Immunization history:: Adult Immunizations up to date, Pneumococcal vaccine is not up to date, Flu vaccine is not up to date. - Social history:: Smoking status: Patient denies any tobacco usage or history of. - Family history:: not pertinent. ROS: 12:19 Constitutional: Negative for fever, chills, and weight loss, Eyes: Negative for injury, jerome pain, redness, and discharge, ENT: Negative for injury, pain, and discharge, Neck: Negative for injury, pain, and swelling, Cardiovascular: Negative for chest pain, palpitations, and edema, Respiratory: Negative for shortness of breath, cough, wheezing, and pleuritic chest pain, Abdomen/GI: Negative for abdominal pain, nausea, vomiting, diarrhea, and constipation, Back: Negative for injury and pain, : Negative for injury, bleeding, discharge, and swelling, MS/Extremity: Negative for injury and deformity, Neuro: Negative for headache, weakness, numbness, tingling, and seizure, Psych: Negative for depression, anxiety, suicide ideation, homicidal ideation, and hallucinations, Allergy/Immunology: Negative for hives, rash, and allergies, Endocrine: Negative for neck swelling, polydipsia, polyuria, polyphagia, and marked weight changes, Hematologic/Lymphatic: Negative for swollen nodes, abnormal bleeding, and unusual bruising. 12:19 Skin: Positive for erythema, rash, of the posterior aspect of left lateral abdomen, anterior aspect of left lateral abdomen and left upper quadrant. Exam: 12:19 Constitutional: This is a well developed, well nourished patient who is awake, alert, jerome and in no acute distress. Head/Face: Normocephalic, atraumatic. Eyes: Pupils equal round and reactive to light, extra-ocular motions intact. Lids and lashes normal. Conjunctiva and sclera are non-icteric and not injected. Cornea within normal limits. Periorbital areas with no swelling, redness, or edema. ENT: Nares patent. No nasal discharge, no septal abnormalities noted. Tympanic membranes are normal and external auditory canals are clear. Oropharynx with no redness, swelling, or masses, exudates, or evidence of obstruction, uvula midline. Mucous membranes moist. Neck: Trachea midline, no thyromegaly or masses palpated, and no cervical lymphadenopathy. Supple, full range of motion without nuchal rigidity, or vertebral point tenderness. No Meningismus. Chest/axilla: Normal chest wall appearance and motion. Nontender with no deformity. No lesions are appreciated. Cardiovascular: Regular rate and rhythm with a normal S1 and S2. No gallops, murmurs, or rubs. Normal PMI, no JVD. No pulse deficits. Respiratory: Lungs have equal breath sounds bilaterally, clear to auscultation and percussion. No rales, rhonchi or wheezes noted. No increased work of breathing, no retractions or nasal flaring. Abdomen/GI: Soft, non-tender, with normal bowel sounds. No distension or tympany. No guarding or rebound. No evidence of tenderness throughout. Back: No spinal tenderness. No costovertebral tenderness. Full range of motion. Female : Normal external genitalia. MS/ Extremity: Pulses equal, no cyanosis. Neurovascular intact. Full, normal range of motion. Neuro: Awake and alert, GCS 15, oriented to person, place, time, and situation. Cranial nerves II-XII grossly intact. Motor strength 5/5 in all extremities. Sensory grossly intact. Cerebellar exam normal. Normal gait. Psych: Awake, alert, with orientation to person, place and time. Behavior, mood, and affect are within normal limits. 12:19 Skin: Appearance: normal except for affected area, swelling, noted on the back and abdomen. Vital Signs: 10:54 BP 178 / 84; Pulse 91; Resp 18 S; Temp 97.3(TE); Pulse Ox 99% on R/A; Weight 96.62 kg ca1 (R); Height 5 ft. 7 in. (170.18 cm) (R); Pain 2/10; 10:54 Body Mass Index 33.36 (96.62 kg, 170.18 cm) ca1 MDM: 11:33 Patient medically screened. [facility] 12:24 Differential diagnosis: cellulitis. Data reviewed: vital signs, nurses notes. 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 Test interpretation: by ED physician or midlevel provider:. Counseling: I had a detailed discussion with the patient and/or guardian regarding: the historical points, exam findings, and any diagnostic results supporting the discharge/admit diagnosis, the need for outpatient follow up, for definitive care, a family practitioner. 09/13 12:19 Order name: Wound dressing; Complete Time: 12:33 [facility] Administered Medications: 12:32 Drug: Bactroban Ointment 2 % 1 application Route: Topical; Site: affected area; ph 12:32 Follow up: Response: No adverse reaction ph Disposition: 09/13/20 12:26 Discharged to Home. Impression: Zoster without complications. - Condition is Stable. - Discharge Instructions: Shingles, Shingles, [id number]. - Prescriptions for Bactroban 2 % Topical Ointment - Apply to affected area 1 application by TOPICAL route every 12 hours; 30 gram. Tramadol 50 mg Oral Tablet - take 1 tablet by ORAL route every 8 hours as needed; 24 tablet. - Medication Reconciliation Form, Thank You Letter, Antibiotic Education, Prescription Opioid Use form. - Follow up: Private Physician; When: 2 - 3 days; Reason: Recheck today's complaints, Continuance of care, Re-evaluation by your physician. - Problem is new. - Symptoms have improved. Signatures: Paulo Arechiga MD MD cha Hall, Patricia, RN RN ph Acob, Марина RN RN [facility] Corrections: (The following items were deleted from the chart) 12:35 12:26 09/13/2020 12:26 Discharged to Home. Impression: Zoster without complications. ph Condition is Stable. Forms are Medication Reconciliation Form, Thank You Letter, Antibiotic Education, Prescription Opioid Use. Follow up: Private Physician; When: 2 - 3 days; Reason: Recheck today's complaints, Continuance of care, Re-evaluation by your physician. Problem is new. Symptoms have improved. jerome
--- NOTE | 2020-09-13 12:26 | ER ---
Nurse's Notes [facility] Name: Jacquie Mota Age: 69 yrs Sex: Female : 1950 Arrival Date: 09/13/2020 Time: 10:46 Bed 26 Private MD: Diagnosis: Zoster without complications Presentation: 09/13 10:54 Chief complaint: Patient states: I have Shingles and my family doc isn't seeing pts at ca1 the moment. I have a spot that is infected. I was prescribed here with Cephalexin and Tramadol. Today, am here for a wound check and see if I can have a refill of the Tramadol. Coronavirus screen: Client denies travel out of the [place] in the last 14 days. At this time, the client does not indicate any symptoms associated with coronavirus-19. Ebola Screen: Patient negative for fever greater than or equal to 101.5 degrees Fahrenheit, and additional compatible Ebola Virus Disease symptoms Patient denies exposure to infectious person. Patient denies travel to an Ebola-affected area in the 21 days before illness onset. No symptoms or risks identified at this time. Initial Sepsis Screen: Does the patient meet any 2 criteria? No. Patient's initial sepsis screen is negative. Does the patient have a suspected source of infection? No. Patient's initial sepsis screen is negative. Risk Assessment: Do you want to hurt yourself or someone else? Patient reports no desire to harm self or others. Onset of symptoms was September 13, 2020. 10:54 Method Of Arrival: Ambulatory ca1 10:54 Acuity: MARIVEL 4 ca1 Historical: - Allergies: 11:00 Codeine; ca1 11:00 Sulfa (Sulfonamide Antibiotics); ca1 11:00 Vicodin; ca1 - Home Meds: 11:00 [place] Thyroid 30 mg Oral tab daily for Hypothyroidism [Active]; Norvasc Oral [Active]; ca1 - PMHx: 11:00 Johnson's Esopagus; hiatal hernia; Hypothyroidism; Hypertension; ca1 - PSHx: 11:00 Tonsillectomy; Cholecystectomy; ca1 - Immunization history:: Adult Immunizations up to date, Pneumococcal vaccine is not up to date, Flu vaccine is not up to date. - Social history:: Smoking status: Patient denies any tobacco usage or history of. - Family history:: not pertinent. Screenin:16 Abuse screen: Denies threats or abuse. Denies injuries from another. Nutritional ph screening: No deficits noted. Tuberculosis screening: No symptoms or risk factors identified. Fall Risk None identified. Assessment: 12:33 General: Appears in no apparent distress. comfortable, Behavior is calm, cooperative, ph appropriate for age, Denies fever. Pain: Complains of pain in left upper quadrant and anterior aspect of left lateral abdomen. Neuro: Level of Consciousness is awake, alert, obeys commands, Oriented to person, place, time, situation. Respiratory: Airway is patent Respiratory effort is even, unlabored. Derm: Skin is healthy with good turgor, Skin is pink, warm \T\ dry. Rash noted that is vesicular, on left upper quadrant and anterior aspect of left lateral abdomen and posterior aspect of left lateral abdomen. Musculoskeletal: Circulation, motion, and sensation intact. Range of motion: intact in all extremities. Vital Signs: 10:54 BP 178 / 84; Pulse 91; Resp 18 S; Temp 97.3(TE); Pulse Ox 99% on R/A; Weight 96.62 kg ca1 (R); Height 5 ft. 7 in. (170.18 cm) (R); Pain 2/10; 10:54 Body Mass Index 33.36 (96.62 kg, 170.18 cm) ca1 ED Course: 10:46 Patient arrived in ED. ag5 10:59 Triage completed. ca1 11:00 Arm band placed on right wrist. ca1 11:33 Paulo Arechiga MD is Attending Physician. jerome 12:16 Mary Canas, RN is Primary Nurse. ph 12:16 Patient has correct armband on for positive identification. Placed in gown. Bed in low ph position. Call light in reach. Side rails up X 1. Pulse ox on. NIBP on. Door closed. Noise minimized. Warm blanket given. 12:34 No provider procedures requiring assistance completed. Patient did not have IV access ph during this emergency room visit. Wound care: located on left upper quadrant was dressed with Bactroban and band aid. Administered Medications: 12:32 Drug: Bactroban Ointment 2 % 1 application Route: Topical; Site: affected area; ph 12:32 Follow up: Response: No adverse reaction ph Outcome: 12:26 Discharge ordered by . jerome 12:34 Discharged to home ambulatory. ph 12:34 Condition: good 12:34 Discharge instructions given to patient, Instructed on discharge instructions, follow up and referral plans. medication usage, Demonstrated understanding of instructions, follow-up care, medications, Prescriptions given X 2. 12:35 Patient left the ED. ph Signatures: Paulo Arechiga MD MD cha Hall, Patricia, RN RN Luis Miguel, ILANA Parish RN, Ajare ag5
[2020-09-13] MEDS ORDERED: MUPIROCIN 2% OINT 22GM TUBE TOP ONE (12:42)
[2020-09-13 12:43] VITALS: BP 178/84; TEMP 97.3; O2SAT 99
== END 2020-09-13 12:35 | disposition home or self-care (01) ==
LOC: ER 10:44
DX: B02.9 Zoster without complications (principal); I10 Essential (primary) hypertension; E03.9 Hypothyroidism, unspecified; Z88.2 Allergy status to sulfonamides; Z88.5 Allergy status to narcotic agent
CPT/HCPCS: 99284